=== PATIENT | female | born 1975 | race Caucasian/White ===

== ENCOUNTER 2025-02-13 10:39 | Emergency (ER) | payer BC, OTHER ==
[~2025-02-13] VITALS: Ht 170.2 cm; Wt 158.8 kg
[2025-02-13 11:32] LABS: PLATELET COUNT (AUTO) 584 K/uL (150-450); RED BLOOD CELL COUNT(AUTO) 3.10 MIL/uL (4.0-5.2); RED CELL DISTRIBUTION WIDTH 17.9 % (11.5-15.0); WHITE BLOOD COUNT (AUTO) 13.5 K/uL (4.3-11.0)
[2025-02-13 11:45] LABS: APPEARANCE,URINE CLEAR (CLEAR); BLOOD, URINE 3+ Ery/uL (NEGATIVE); LEUKOCYTE ESTERASE ,URINE NEGATIVE (NEGATIVE); NITRITE, URINE NEGATIVE (NEGATIVE); PREGNANCY TEST URINE QUAL NEGATIVE (NEGATIVE); UGLUCOSE NEGATIVE (NEGATIVE)
[2025-02-13 11:47] LABS: ADD URINE CULTURE NO; SQUAMOUS EPITHELIAL CELL,UR Rare /HPF (None Seen)
[2025-02-13 11:51] LABS: INR 0.96 (0.91-1.10)
[2025-02-13 11:56] LABS: ASPARTATE AMINOTRANSFERASE 15.0 U/L (15-37); CALCIUM, SERUM 8.2 mg/dL (8.5-10.1); CREATININE 1.0 mg/dL (0.6-1.3); SODIUM SERUM 138.0 mmol/L (136-145); TOTAL PROTEIN, SERUM 7.3 g/dL (6.4-8.2); UREA NITROGEN, BLOOD 10.0 mg/dL (7-18)
[2025-02-13] MEDS ORDERED: KETOROLAC TROMETHAMINE INJ 30 MG/ML VIAL ONE (13:19)
[2025-02-13] MEDS: KETOROLAC TROMETHAMINE INJ 30 MG/ML VIAL IM ONE (13:20)
[2025-02-13] MEDS ORDERED: KETO10TA2 PO (13:22)
[2025-02-13 13:42] VITALS: BP 143/92; TEMP 98; O2SAT 97
== END 2025-02-13 13:42 | disposition home or self-care (01) ==
LOC: ER 10:39
DX: N93.9 Abnormal uterine and vaginal bleeding, unspecified (principal); I10 Essential (primary) hypertension; R10.2 Pelvic and perineal pain; Z88.5 Allergy status to narcotic agent
CPT/HCPCS: 99285; 76856; 96372; 85025; 80048; 87086; 83690; 80076; 84703; 81001; 36415; 85730; 84702; J1885